=== PATIENT | female | born 1990 | race African-American/Black ===

== ENCOUNTER 2022-07-29 14:08 | Emergency (ER) | payer OTHER ==
[~2022-07-29] VITALS: Ht 162.6 cm; Wt 64.0 kg
[2022-07-29 17:30] LABS: BASOPHILS % 0.3 % (0.0-2.0); EOSINOPHILS % 0.3 % (0.0-5.0); HEMATOCRIT. 39.7 % (36.0-48.0); HEMOGLOBIN. 13.3 g/dL (12.0-16.0); LYMPHOCYTES % 15.5 % (20.0-50.0); MEAN CORPUSCULAR HEMOGLOBIN 30.7 pg (28.0-32.0); MEAN CORPUSCULAR VOLUME 91.5 fL (81.0-99.0); MEAN PLATELET VOLUME 6.8 fl (7.4-10.4); MONOCYTES % 7.9 % (2.0-8.0); PLATELET 349 x1000/uL (130-400); RED BLOOD CELL COUNT 4.34 mill/uL (4.2-5.4); RED CELL DISTRIBUTION WIDTH 13.2 % (11.6-14.6)
[2022-07-29 17:39] LABS: CHLORIDE 104 mEq/L (98-107)
[2022-07-29 17:51] LABS: HCG SCREEN POSITIVE
[2022-07-29 20:53] LABS: CLARITY URINE CLOUDY (CLEAR); COLOR URINE DARK YELLOW (YELLOW); KETONES URINE 3+ (NEGATIVE); LEUKOCYTE ESTERASE URINE 1+ (NEGATIVE); NITRITE URINE NEGATIVE (NEGATIVE); OCCULT BLOOD URINE 1+ (NEGATIVE); PROTEIN URINE TRACE (NEGATIVE); SPECIFIC GRAVITY URINE 1.028 (1.005-1.030)
[2022-07-29 21:11] VITALS: BP 140/60
[2022-07-29] MEDS: ACETAMINOPHEN 325MG TABLET PO ONE (21:11)
[2022-07-29] MEDS: IBUPROFEN 400MG TABLET PO ONE (21:11)
[2022-07-29] MEDS ORDERED: IOHEXOL-350 100 ML BOTTLE ONE (21:42)
== END 2022-07-30 00:05 | disposition home or self-care (01) ==
LOC: ER 14:08
DX: R07.89 Other chest pain (principal); J45.909 Unspecified asthma, uncomplicated; R05.9 Cough, unspecified
CPT/HCPCS: 36415; 71045; 71275; 80053; 81003; 81025; 83880; 84484; 84702; 84703; 85025; 85379; 93005; 99285; Q9967